=== PATIENT | male | born 1935 | race Caucasian/White ===

== ENCOUNTER 2019-08-14 13:05 | Outpatient (CLI) | payer MEDICARE, BC ==
--- NOTE | 2019-08-14 13:36 | CT ---
CT Head without IV contrast COMPARISON: 10/21/2010 HISTORY: Right parietal subdural hemorrhage. TECHNIQUE: Axial CT imaging at 5 mm intervals from vertex through skull base without contrast FINDINGS: There is a low-density subdural collection seen in the right parietal region and greatest transverse dimension measuring 7 mm. Although the exact age is difficult to determine, this is likely more subacute to chronic in age. No additional intraparenchymal or extra-axial hemorrhage is identified. There is decreased attenuation seen in the periventricular white matter which is nonspecific but like ly attributable to chronic small vessel ischemic changes. No acute cortical infarction, mass effect, or midline shift is identified. There is mild cerebral and cerebellar volume loss. The ventri cular system is normal in size, shape, and position for the degree of sulcal atrophy. Visualized paranasal sinuses and mastoid air cells are clear Osseous structures appear intact. Fracture involving the anterior arch of C1 vertebral body is less p erceptible on this examination suggestive of interval healing of the previously seen fracture on study of 2010. However, this is incompletely imaged or evaluated on this exam. IMPRESSION: 1. Right parietal extra-axial subdural collection likely due to subdural hemorrhage which is likely e ither subacute to chronic in origin. No additional hemorrhage is seen. A more recent comparison studies demonstrating right subdural hemorrhage is not available. Most recent available study for hawa robledo is a study in 2010. 2. Cerebral and cerebellar volume loss with chronic small vessel ischemic changes. Chronic small vess el ischemic changes have mildly progressed when compared to prior study.
== END 2019-08-14 13:06 | disposition home or self-care (01) ==
LOC: TBSIIMAG 13:05
PROVIDERS: ATTEND Surgery
DX: S06.5X9D Traumatic subdural hemorrhage with loss of consciousness of unspecified duration, subsequent encounter (principal); I67.82 Cerebral ischemia
CPT/HCPCS: 70450